=== PATIENT | male | born 1970 | race Two or more races ===

== ENCOUNTER 2022-09-23 15:26 | Inpatient (IN) | payer OTHER ==
[2022-09-23 11:54] VITALS: BMI 32.5
[2022-09-23] MEDS ORDERED: BENZOCAINE/MENTHOL (CHLORASEPTIC ) LOZENGE MM PRN (19:47)
[2022-09-23] MEDS ORDERED: POLYETHYLENE GLYCOL (HEALTHYLAX) 3350 17 GM PACKET PO PRN (19:47)
[2022-09-23] MEDS ORDERED: MAGNESIUM HYDROX 2400MG/30ML ORAL SUSPENSION 30 ML CUP PO PRN (19:47)
[2022-09-23] MEDS ORDERED: IBUPROFEN 400 MG TABLET (FP) PO PRN (19:47)
[2022-09-23] MEDS ORDERED: AMMONIUM LACTATE 12% LOTION 225 GM BOTTLE TP PRN (19:47)
[2022-09-23] MEDS ORDERED: guaiFENesin 600 MG TABLET.ER (FP) PO PRN (19:47)
[2022-09-23] MEDS ORDERED: ACETAMINOPHEN 325 MG TABLET (FP) PO PRN (19:47)
[2022-09-23] MEDS ORDERED: BENZONATATE 200 MG CAPSULE PO PRN (19:47)
[2022-09-23] MEDS ORDERED: LOPERAMIDE HCL 2 MG CAPSULE PO PRN (19:47)
[2022-09-23] MEDS ORDERED: NALOXONE HCL 0.4 MG/ML VIAL IM PRN (19:47)
[2022-09-23] MEDS ORDERED: NALOXONE HCL (KLOXXADO) 8 MG SPRAY NS PRN (19:47)
[2022-09-23] MEDS ORDERED: IBUPROFEN 600 MG TABLET (FP) PO PRN (19:47)
[2022-09-23] MEDS ORDERED: MAG HYDROX/AL HYDROX/SIMETH 30 ML UNIT-DOSE CUP PO PRN (19:47)
[2022-09-23] MEDS ORDERED: TUBERCULIN PPD 5 TU/0.1ML SYRINGE (IN PATIENT USE ONLY) ID ONE (20:15)
[2022-09-23] MEDS ORDERED: TUBERCULIN PPD 5 TU/0.1ML VIAL ID ONE (20:52)
[2022-09-23] MEDS: MELATONIN 5 MG TABLETS PO SCH (21:30)
[2022-09-23] MEDS: hydrOXYzine PAMOATE 25 MG CAPSULE (FP) PO PRN (21:30)
[2022-09-23] MEDS: THIAMINE HCL 100 MG TABLET (FP) PO SCH (21:30)
[2022-09-23] MEDS: COLLOIDAL OATMEAL 1 BAR EACH TP PRN (21:34)
[2022-09-23 22:52] VITALS: RESP 18
[2022-09-24] MEDS: NICOTINE 7 MG/24 HOURS TOPICAL PATCH TD SCH (09:34)
[2022-09-24] MEDS: PRENATAL VITAMINS W/ FOLIC ACID TABLET (FP) PO SCH (09:34)
[2022-09-24 10:51] LABS: HEMATOCRIT 43.7 % (35.4-49); HEMOGLOBIN 14.5 GM/dL (11.7-16.9); MCH 28.5 pg (25.7-33.7); MEAN CELL VOLUME 86.2 fl (80-96); MEAN PLT VOLUME 8.3 fl (7.5-11.1); PLATELET COUNT 190 10^3/uL (134-434); POTASSIUM 4.3 mmol/L (3.5-5.1); RBC 5.08 M/mm3 (4.00-5.60); RDW 15.9 % (11.9-15.9); WHITE BLOOD COUNT 7.2 K/mm3 (4.0-10.0)
[2022-09-24 10:54] LABS: ALBUMIN 3.3 g/dl (3.4-5.0); BLOOD UREA NITROGEN 9.2 mg/dL (7-18)
[2022-09-24 10:57] LABS: CREATININE 0.6 mg/dL (0.55-1.3)
[2022-09-24 10:58] LABS: BILIRUBIN,TOTAL 0.7 mg/dL (0.2-1); TOT PROT 6.8 g/dl (6.4-8.2)
[2022-09-24] MEDS: hydrOXYzine PAMOATE 25 MG CAPSULE (FP) PO PRN (11:32)
[2022-09-24] MEDS: MELATONIN 5 MG TABLETS PO SCH (22:41)
[2022-09-24] MEDS: THIAMINE HCL 100 MG TABLET (FP) PO SCH (22:42)
[2022-09-25] MEDS: NICOTINE 7 MG/24 HOURS TOPICAL PATCH TD SCH (09:57)
[2022-09-25] MEDS: PRENATAL VITAMINS W/ FOLIC ACID TABLET (FP) PO SCH (09:57)
[2022-09-25] MEDS: MELATONIN 5 MG TABLETS PO SCH (21:27)
[2022-09-25] MEDS: THIAMINE HCL 100 MG TABLET (FP) PO SCH (21:28)
[2022-09-25] MEDS: NICOTINE 10 MG CARTRIDGE (INHALER) IH PRN (22:33)
[2022-09-26] MEDS: NICOTINE 7 MG/24 HOURS TOPICAL PATCH TD SCH (09:40)
[2022-09-26] MEDS: PRENATAL VITAMINS W/ FOLIC ACID TABLET (FP) PO SCH (09:40)
[2022-09-26] MEDS ORDERED: glipiZIDE 5 MG TABLET (FP) PO SCH (10:00)
[2022-09-26] MEDS ORDERED: PATIENT'S OWN MEDICATION (NON-FORMULARY) (Glipizide/Metformin Hcl [Glipizide-Metformin 5-5 PO SCH (10:00)
[2022-09-26] MEDS ORDERED: metFORMIN HCL 500 MG TABLET (FP) PO SCH (10:00)
[2022-09-26] MEDS ORDERED: INSULIN SLIDING SCALE (NOVOLOG) 1 VIAL SQ ONE ×2 (10:06)
[2022-09-26] MEDS ORDERED: INSULIN (NOVOLOG) ASPART 100 UNITS/ML 10ML VIAL ONE ×2 (10:06→18:20)
[2022-09-26] MEDS ORDERED: INSULIN (NOVOLOG) ASPART 100 UNITS/ML 10ML VIAL SQ ONE (10:30)
[2022-09-26] MEDS ORDERED: INSULIN SLIDING SCALE (NOVOLOG) 1 VIAL SQ SCH ×2 (11:00→16:30)
[2022-09-26 12:02] LABS: URINE APPEARANCE CLEAR; URINE BILIRUBIN NEGATIVE (NEGATIVE); URINE COLOR YELLOW; URINE GLUCOSE (UA) 3+ (NEGATIVE); URINE KETONE NEGATIVE (NEGATIVE); URINE LEUK ESTERASE NEGATIVE (NEGATIVE); URINE NITRITE NEGATIVE (NEGATIVE); URINE PROTEIN NEGATIVE (NEGATIVE); URINE UROBILINOGEN 0.2 mg/dL (0.2-1.0)
[2022-09-26] MEDS: INSULIN SLIDING SCALE (NOVOLOG) 1 VIAL SQ SCH ×2 (16:18→21:37)
[2022-09-26] MEDS: metFORMIN HCL 500 MG TABLET (FP) PO SCH (17:23)
[2022-09-26] MEDS: MELATONIN 5 MG TABLETS PO SCH (21:35)
[2022-09-26] MEDS: THIAMINE HCL 100 MG TABLET (FP) PO SCH (21:36)
[2022-09-27] MEDS: metFORMIN HCL 500 MG TABLET (FP) PO SCH ×2 (07:33→16:47)
[2022-09-27] MEDS: sitaGLIPtin PHOSPHATE 50 MG TABLET PO SCH (07:33)
[2022-09-27] MEDS: INSULIN SLIDING SCALE (NOVOLOG) 1 VIAL SQ SCH ×4 (07:36→21:36)
[2022-09-27] MEDS: PRENATAL VITAMINS W/ FOLIC ACID TABLET (FP) PO SCH (10:03)
[2022-09-27] MEDS: NICOTINE 7 MG/24 HOURS TOPICAL PATCH TD SCH (10:03)
[2022-09-27] MEDS ORDERED: INSULIN (NOVOLOG) ASPART 100 UNITS/ML 10ML VIAL ONE (12:03)
[2022-09-27] MEDS: THIAMINE HCL 100 MG TABLET (FP) PO SCH (21:31)
[2022-09-27] MEDS: carBAMazepine 100 MG TAB.CHEW PO SCH (21:38)
[2022-09-27] MEDS: MELATONIN 5 MG TABLETS PO SCH (21:38)
[2022-09-28] MEDS: sitaGLIPtin PHOSPHATE 50 MG TABLET PO SCH (06:47)
[2022-09-28] MEDS: metFORMIN HCL 500 MG TABLET (FP) PO SCH ×2 (06:47→16:54)
[2022-09-28] MEDS ORDERED: INSULIN (NOVOLOG) ASPART 100 UNITS/ML 10ML VIAL ONE ×5 (07:35→21:30)
[2022-09-28] MEDS: INSULIN SLIDING SCALE (NOVOLOG) 1 VIAL SQ SCH ×4 (07:37→21:31)
[2022-09-28] MEDS: NICOTINE 7 MG/24 HOURS TOPICAL PATCH TD SCH (09:56)
[2022-09-28] MEDS: PRENATAL VITAMINS W/ FOLIC ACID TABLET (FP) PO SCH (09:56)
[2022-09-28] MEDS: carBAMazepine 100 MG TAB.CHEW PO SCH ×2 (09:57→21:29)
[2022-09-28] MEDS: THIAMINE HCL 100 MG TABLET (FP) PO SCH (21:29)
[2022-09-28] MEDS: MELATONIN 5 MG TABLETS PO SCH (21:29)
[2022-09-28] MEDS: MIRTAZAPINE 15 MG TABLET (FP) PO SCH (21:29)
[2022-09-29] MEDS: metFORMIN HCL 500 MG TABLET (FP) PO SCH ×2 (07:01→16:59)
[2022-09-29] MEDS ORDERED: INSULIN (NOVOLOG) ASPART 100 UNITS/ML 10ML VIAL ONE ×3 (07:01→21:25)
[2022-09-29] MEDS: sitaGLIPtin PHOSPHATE 50 MG TABLET PO SCH (07:01)
[2022-09-29] MEDS: INSULIN SLIDING SCALE (NOVOLOG) 1 VIAL SQ SCH ×4 (07:02→21:31)
[2022-09-29] MEDS: NICOTINE 10 MG CARTRIDGE (INHALER) IH PRN (08:04)
[2022-09-29] MEDS: PRENATAL VITAMINS W/ FOLIC ACID TABLET (FP) PO SCH (09:52)
[2022-09-29] MEDS: NICOTINE 7 MG/24 HOURS TOPICAL PATCH TD SCH (09:52)
[2022-09-29] MEDS: carBAMazepine 100 MG TAB.CHEW PO SCH ×2 (09:54→21:27)
[2022-09-29] MEDS: COLLOIDAL OATMEAL 1 BAR EACH TP PRN (10:07)
[2022-09-29] MEDS: MIRTAZAPINE 15 MG TABLET (FP) PO SCH (21:27)
[2022-09-29] MEDS: THIAMINE HCL 100 MG TABLET (FP) PO SCH (21:27)
[2022-09-29] MEDS: MELATONIN 5 MG TABLETS PO SCH (21:40)
[2022-09-29] MEDS ORDERED: INSULIN (LEVEMIR) 100 UNITS/ML UNITS SQ SCH (22:00)
[2022-09-30 07:23] VITALS: BP 139/83; PULSE 73; TEMP 96.6
[2022-09-30] MEDS: sitaGLIPtin PHOSPHATE 50 MG TABLET PO SCH (07:25)
[2022-09-30] MEDS: metFORMIN HCL 500 MG TABLET (FP) PO SCH (07:25)
[2022-09-30] MEDS ORDERED: INSULIN (NOVOLOG) ASPART 100 UNITS/ML 10ML VIAL ONE (07:28)
[2022-09-30] MEDS: INSULIN SLIDING SCALE (NOVOLOG) 1 VIAL SQ SCH ×2 (07:29→11:43)
[2022-09-30] MEDS: PRENATAL VITAMINS W/ FOLIC ACID TABLET (FP) PO SCH (10:03)
[2022-09-30] MEDS: NICOTINE 7 MG/24 HOURS TOPICAL PATCH TD SCH (10:03)
[2022-09-30] MEDS: carBAMazepine 100 MG TAB.CHEW PO SCH (10:05)
== END 2022-09-30 12:28 | disposition left against medical advice (07) | DRG 772 ==
LOC: YASAS 15:26 → Y5N 20:05
PROVIDERS: ADMIT Allergy & Immunology; ATTEND Psychiatry & Neurology Pain Medicine
PROC: HZ42ZZZ Group Counseling for Substance Abuse Treatment, Cognitive-Behavioral (ICD-10-PCS; principal; 2022-09-23)
DX: F14.20 Cocaine dependence, uncomplicated (principal); F16.20 Hallucinogen dependence, uncomplicated; F12.20 Cannabis dependence, uncomplicated; F17.210 Nicotine dependence, cigarettes, uncomplicated; F31.9 Bipolar disorder, unspecified; F19.24 Other psychoactive substance dependence with psychoactive substance-induced mood disorder; F41.9 Anxiety disorder, unspecified; F43.10 Post-traumatic stress disorder, unspecified; E78.2 Mixed hyperlipidemia; J45.30 Mild persistent asthma, uncomplicated; K21.9 Gastro-esophageal reflux disease without esophagitis; E11.9 Type 2 diabetes mellitus without complications; Z79.4 Long term (current) use of insulin; M54.50 Low back pain, unspecified; G89.29 Other chronic pain; E66.9 Obesity, unspecified; Z68.32 Body mass index [BMI] 32.0-32.9, adult; F91.8 Other conduct disorders; Z91.199 Patient's noncompliance with other medical treatment and regimen due to unspecified reason; Z59.01 Sheltered homelessness
CPT/HCPCS: 36415; 80053; 81003; 82962; 85027; 86780; 87635; 87811; 93005; 93010

== ENCOUNTER 2023-08-08 23:18 | Inpatient (IN) | payer OTHER ==
[2023-08-09 00:06] VITALS: BMI 31.4
[2023-08-09] MEDS ORDERED: ALBUTEROL SO4 HFA INHALER IH PRN (01:07)
[2023-08-09] MEDS ORDERED: NICOTINE POLACRILEX 2 MG GUM BUC PRN (01:08)
[2023-08-09] MEDS ORDERED: POLYETHYLENE GLYCOL (HEALTHYLAX) 3350 17 GM PACKET PO PRN (01:08)
[2023-08-09] MEDS ORDERED: ACETAMINOPHEN 325 MG TABLET (FP) PO PRN (01:08)
[2023-08-09] MEDS ORDERED: MAG HYDROX/AL HYDROX/SIMETH 30 ML UNIT-DOSE CUP PO PRN (01:08)
[2023-08-09] MEDS ORDERED: BISMUTH SUBSALICYLATE 524 MG/30 ML PO PRN (01:08)
[2023-08-09] MEDS ORDERED: NALOXONE HCL 0.4 MG/ML VIAL IM PRN (01:08)
[2023-08-09] MEDS ORDERED: IBUPROFEN 400 MG TABLET (FP) PO PRN (01:08)
[2023-08-09] MEDS ORDERED: BENZONATATE 200 MG CAPSULE PO PRN (01:08)
[2023-08-09] MEDS ORDERED: DICYCLOMINE HCL 10 MG CAPSULE PO PRN (01:08)
[2023-08-09] MEDS ORDERED: guaiFENesin 600 MG TABLET.ER (FP) PO PRN (01:08)
[2023-08-09] MEDS ORDERED: NALOXONE HCL (KLOXXADO) 8 MG SPRAY NS PRN (01:08)
[2023-08-09] MEDS ORDERED: MAGNESIUM HYDROX 2400MG/30ML ORAL SUSPENSION 30 ML CUP PO PRN (01:08)
[2023-08-09] MEDS ORDERED: BENZOCAINE/MENTHOL (CHLORASEPTIC ) LOZENGE MM PRN (01:08)
[2023-08-09] MEDS ORDERED: LOPERAMIDE HCL 2 MG CAPSULE PO PRN (01:08)
[2023-08-09] MEDS ORDERED: methaDONE HCL 10 MG TABLET (FOR DETOX USE ONLY) ONE (01:57)
[2023-08-09] MEDS: methaDONE HCL 10 MG TABLET (FOR DETOX USE ONLY) PO ONE (02:02)
[2023-08-09] MEDS ORDERED: METHOCARBAMOL 500 MG TABLET ONE (02:13)
[2023-08-09] MEDS ORDERED: IBUPROFEN 600 MG TABLET (FP) PO ONE (02:14)
[2023-08-09] MEDS: IBUPROFEN 600 MG TABLET (FP) PO PRN (02:15)
[2023-08-09] MEDS: METHOCARBAMOL 500 MG TABLET PO PRN (02:17)
[2023-08-09] MEDS: PRENATAL VITAMINS W/ FOLIC ACID TABLET (FP) PO SCH (10:21)
[2023-08-09] MEDS: NICOTINE 21 MG/24 HOURS TOPICAL PATCH TD SCH (10:22)
[2023-08-09] MEDS: INSULIN ASPART SLIDING SCALE (NOVOLOG) 1 VIAL SQ SCH (17:08)
[2023-08-09] MEDS: cloNIDine HCL 0.1 MG TABLET PO PRN (21:27)
[2023-08-09] MEDS: THIAMINE 100 MG TABLET PO SCH (21:27)
[2023-08-09] MEDS: MELATONIN 5 MG TABLETS PO SCH (21:28)
[2023-08-10 08:24] LABS: POTASSIUM 4.5 mmol/L (3.5-5.1)
[2023-08-10 08:34] LABS: ALBUMIN 3.4 g/dl (3.4-5.0); BLOOD UREA NITROGEN 23.8 mg/dL (7-18)
[2023-08-10 08:35] LABS: CALCIUM 9.2 mg/dL (8.5-10.1)
[2023-08-10 08:37] LABS: HEMATOCRIT 42.2 % (35.4-49); HEMOGLOBIN 14.5 GM/dL (11.7-16.9); MCH 29.7 pg (25.7-33.7); MCHC 34.3 g/dl (32.0-35.9); MEAN CELL VOLUME 86.6 fl (80-96); MEAN PLT VOLUME 8.3 fl (7.5-11.1); PLATELET COUNT 204 10^3/uL (134-434); RBC 4.88 M/mm3 (4.00-5.60); WHITE BLOOD COUNT 7.3 K/mm3 (4.0-10.0)
[2023-08-10 08:38] LABS: BILIRUBIN,TOTAL 0.4 mg/dL (0.2-1); TOT PROT 7.1 g/dl (6.4-8.2)
[2023-08-10] MEDS: AMMONIUM LACTATE 12% LOTION 225 GM BOTTLE TP SCH (15:54)
[2023-08-10] MEDS: BACITRACIN 0.9 GM PACKET TP SCH (15:55)
[2023-08-10] MEDS: BACITRACIN ZINC 15 GM TUBE TOPICAL OINTMENT TP SCH (15:56)
[2023-08-10] MEDS: metFORMIN HCL 500 MG TABLET (FP) PO SCH (17:38)
[2023-08-10] MEDS: sitaGLIPtin PHOSPHATE 50 MG TABLET PO SCH (17:38)
[2023-08-10] MEDS ORDERED: ATORVASTATIN CA 20 MG TABLET (FP) PO SCH (22:00)
[2023-08-10] MEDS ORDERED: PATIENT'S OWN MEDICATION (NON-FORMULARY) (Alogliptin Benz/Metformin Hcl [Alogliptin-Metfor PO SCH (22:00)
[2023-08-10] MEDS: CARVEDILOL 25 MG TABLET (FP) PO SCH (22:18)
[2023-08-10] MEDS: ATORVASTATIN CA 20 MG TABLET (FP) PO SCH (22:18)
[2023-08-11] MEDS: methaDONE HCL 10 MG TABLET (FOR DETOX USE ONLY) PO ONE (10:02)
[2023-08-11] MEDS: NICOTINE 21 MG/24 HOURS TOPICAL PATCH TD ONE (14:04)
[2023-08-12] MEDS: ONDANSETRON *ODT* 4 MG TABLET SL PRN (16:37)
[2023-08-12] MEDS: hydrOXYzine PAMOATE 25 MG CAPSULE (FP) PO PRN (21:35)
[2023-08-13] MEDS: methaDONE HCL 10 MG TABLET (FOR DETOX USE ONLY) PO ONE (09:29)
[2023-08-14 09:05] VITALS: BP 119/64; PULSE 64; RESP 20; TEMP 97.2
== END 2023-08-14 11:50 | disposition home or self-care (01) | DRG 773 ==
LOC: YASAS 23:18 → Y3N 08-09 01:20
PROVIDERS: ADMIT Allergy & Immunology; ATTEND Surgery
PROC: HZ2ZZZZ Detoxification Services for Substance Abuse Treatment (ICD-10-PCS; principal; 2023-08-09)
DX: F11.23 Opioid dependence with withdrawal (principal); F14.20 Cocaine dependence, uncomplicated; F17.210 Nicotine dependence, cigarettes, uncomplicated; F19.24 Other psychoactive substance dependence with psychoactive substance-induced mood disorder; F31.9 Bipolar disorder, unspecified; I10 Essential (primary) hypertension; E11.9 Type 2 diabetes mellitus without complications; Z79.4 Long term (current) use of insulin; Z79.84 Long term (current) use of oral hypoglycemic drugs; K21.9 Gastro-esophageal reflux disease without esophagitis; M10.9 Gout, unspecified; Z86.59 Personal history of other mental and behavioral disorders; Z56.0 Unemployment, unspecified
CPT/HCPCS: 36415; 80053; 80305; 80307; 82962; 85027; 86780; 93005; 93010; Q0162